=== PATIENT | male | born 1980 | race African-American/Black ===

== ENCOUNTER 2016-11-13 16:38 | Emergency (ER) | payer BC ==
[2016-11-13 20:14] LABS: #Basophils 0.1 thou/uL (0.0-0.2); #Eosinphils 0.4 thou/uL (0.0-0.7); #Lymphocytes 2.2 thou/uL (1.20-3.40); #Monocytes 0.4 thou/uL (0.11-0.59); %Basophils 1.8 % (0.0-1.0); %Eosinophils 5.9 % (0.0-10.0); %Lymphocytes 30.5 % (21.0-51.0); %Monocytes 5.6 % (0.0-10.0); Hematocrit 44.9 % (42.0-52.0); Mean Platelet Volume 6.8 fL (7.4-10.4); Red Blood Cell (RBC) Count 4.96 mill/uL (4.70-6.10); White Blood Cell (WBC) Count 7.1 thou/uL (4.8-10.8)
[2016-11-13 20:35] LABS: ALT (SGPT) 21 U/L (8-55); AST (SGOT) 14 U/L (5-34); Alkaline Phosphatase 44 U/L (40-150); Anion Gap 11 mmol/L (10-20); BUN (Urea Nitrogen) 17 mg/dL (8.9-20.6); Bilirubin, Total 0.3 mg/dL (0.2-1.2); Calc. Creatinine Clearance 0 mL/min (70-130); Calcium 9.3 mg/dL (7.8-10.44); Carbon Dioxide 26 mmol/L (22-29); Chloride 105 mmol/L (98-107); Estimated GFR-MDRD Greater than 90; Globulin 3.5 g/dL (2.4-3.5); Protein, Total 7.7 g/dL (6.0-8.3)
[2016-11-13 21:04] LABS: Bilirubin Negative (Negative); Blood, Urine Negative (Negative); Glucose, Urine (Dipstick) Negative (Negative); Ketone, Urine Negative (Negative); Nitrite Negative (Negative); Protein, Urine (Dipstick) Negative (Neg-Trace)
== END 2016-11-13 22:00 | disposition home or self-care (01) ==
LOC: ERS 16:38
DX: R51 Headache (principal); R03.0 Elevated blood-pressure reading, without diagnosis of hypertension; F17.210 Nicotine dependence, cigarettes, uncomplicated
CPT/HCPCS: 36415; 80053; 81003; 85025; 99284

== ENCOUNTER 2018-12-22 01:41 | Emergency (ER) | payer BC ==
[2018-12-22] MEDS ORDERED: Adacel (T-DAP) 0.5 ML SYRINGE ONE (02:05)
[2018-12-22] MEDS ORDERED: Lidocaine 1% PF 5 ML VIAL ONE (02:05)
[2018-12-22] MEDS ORDERED: Ondansetron ODT 4 MG TAB ONE (02:31)
[2018-12-22] MEDS ORDERED: Bacitracin 1 PK ONE (02:49)
--- NOTE | 2018-12-22 09:08 | RAD ---
Exam:Left hand fourth digit 3 views HISTORY: Pain. Trauma. COMPARISON: None FINDINGS: Mildly displaced tuft injury. Associated soft tissue swelling. IMPRESSION: Tuft fracture.
== END 2018-12-22 02:57 | disposition home or self-care (01) ==
LOC: ERS 01:41
DX: S62.635A Displaced fracture of distal phalanx of left ring finger, initial encounter for closed fracture (principal); I10 Essential (primary) hypertension; F17.210 Nicotine dependence, cigarettes, uncomplicated; Z79.899 Other long term (current) drug therapy; Z71.6 Tobacco abuse counseling; W23.0XXA Caught, crushed, jammed, or pinched between moving objects, initial encounter
CPT/HCPCS: 12001; 90471; 90715; 99406; J2001; Q0162